=== PATIENT | male | born 1970 | race Caucasian/White ===

== ENCOUNTER 2017-07-26 15:54 | Inpatient (IN) | payer OTHER ==
[2017-07-26] MEDS ORDERED: ACETAMINOPHEN 500 MG CPLT PO PRN (16:00)
[2017-07-26] MEDS ORDERED: ONDANSETRON HCL 4 MG/2 ML VIAL IV PUSH PRN (16:00)
[2017-07-26] MEDS ORDERED: SODIUM CHLORIDE 0.9% FLUSH 5 ML FLUSH IVF PRN (16:00)
[2017-07-26] MEDS ORDERED: ACETAMINOPHEN/HYDROcodone 325 MG/7.5 MG TAB PO PRN (16:00)
--- NOTE | 2017-07-26 16:20 | HHI.HP ---
HPI Primary Care Physician Non-Staff Chief Complaint Chest pain History of Present Illness This is a 46-year-old male that presents to ED in [place] to evaluate chest discomfort that began this morning. He was then transferred via [facility] to the chest pain center to further evaluate his discomforts. He states that he had just finished going on his treadmill for 40 minutes. Going about 6 mph. Maximal heart rate about 1-60. About 20 minutes later while in the shower he developed a tightness in the center/left of his chest but began to worsen as she is driving into work. It has remained a 5 out of 10 ever since. He states he was given subluminal nitroglycerin in the ED and ointment which really has not changed symptoms. Denies shortness breath, nausea, or diaphoresis. States he is active. He goes on the treadmill 3 times a week and has no discomfort when doing so. He also will ride his bicycle at times for 20 miles or more. States he never has discomfort while doing so. Denies recent illness. Denies fevers or chills. Denies recent travel. Cannot recall ever having a stress test or heart catheterization. Review of Systems General: Patient denies fevers, chills recent, and recent travel HEENT: Patient denies headache, sore throat, difficulty swallowing. Cardiovascular: Has the chest discomfort as mentioned above. Denies sensation of heart beating rapidly or irregularly. No syncope. Respiratory: Denies shortness of breath or inspirational chest discomfort. Denies coughing wheezing or hemoptysis. GI: Patient denies nausea, vomiting, diarrhea, abdominal pain, bloody stools. Musculoskeletal: Patient denies joint pain or edema. Denies calf pain or edema. Neurovascular: Patient denies numbness, tingling, weakness in extremities. Denies headache. Endocrine: Denies polyuria and polydipsia. Hematologic: Denies easy bruising. Skin: Denies rash or itching. Past Family Social History Allergies: Coded Allergies: No Known Allergies (Unverified , 07/26/17) Past Medical History Denies hypertension, hyperlipidemia, diabetes, and known CAD. Past Surgical History Denies surgeries. Reported Medications Reported Meds & Active Scripts Active No Active Prescriptions or Reported Medications Active Ordered Medications Current Medications Medications (Trade) Dose Ordered Sig/[place] Route Start Time Stop Time Status Last Admin (NS Flush) 2 ml UNSCH PRN IVF 07/26/17 16:00 UNV (NS Flush) 2 ml BID IVF 07/26/17 21:00 UNV (Tylenol) 500 mg Q4H PRN PO 07/26/17 16:00 UNV (Angora 7.5-325 Mg) 1 tab Q4H PRN PO 07/26/17 16:00 UNV (Zofran Inj) 4 mg Q6H PRN IV PUSH 07/26/17 16:00 UNV (Aspirin) 325 mg DAILY PO 07/27/17 09:00 UNV Family History Denies family history of CAD. Social History Patient is a lifetime nonsmoker. Denies illicit drugs. He has an occasional glass of wine. 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 He is . Physical Exam Physical Exam GENERAL: This is a well-nourished, well-developed patient, in no apparent distress. Patient speaks in clear complete sentences. Patient is pleasant. HEENT: Head is atraumatic and normocephalic. Neck is supple without lymphadenopathy and trachea is midline. No JVD or carotid bruits. CARDIOVASCULAR: Regular rate and rhythm without murmurs, gallops, or rubs. RESPIRATORY: Clear to auscultation. Breath sounds equal bilaterally. No wheezes , rales, or rhonchi. Chest wall is nontender. No use of accessory muscles. GASTROINTESTINAL: Abdomen is nontender, nondistended. Abdomen soft. No obvious pulsatile mass or bruit. No CVA tenderness. Strong femoral pulses bilaterally. Normal bowel sounds in all quadrants. MUSCULOSKELETAL: Patient is moving upper and lower extremities freely. No calf tenderness or edema, no Homans sign. Strong pulses in upper and lower extremities. NEUROLOGICAL: Patient is alert and oriented. Cranial nerves 2-12 are grossly intact. No focal deficits and speech is clear. SKIN: No rash and turgor is normal. Imaging Chest x-ray reveals nothing acute. Course Initial EKG sinus rhythm without significant ST segment depressions or elevations. Caprini VTE Risk Assessment Caprini VTE Risk Assessment: No/Low Risk (score <= 1) Caprini Risk Assessment Model Point Value = 1 Point Value = 2 Point Value = 3 Point Value = 5 Age 41-60 Minor surgery BMI > 25 kg/m2 Swollen legs Varicose veins or History of unexplained or recurrent spontaneous Oral contraceptives or hormone replacement Sepsis (< 1 month) Serious lung disease, including pneumonia (< 1 month) Abnormal pulmonary function Acute myocardial infarction Congestive heart failure (< 1 month) History of inflammatory bowel disease Medical patient at bed rest Age 61-74 Arthroscopic surgery Major open surgery (> 45 min) Laparoscopic surgery (> 45 min) Malignancy Confined to bed (> 72 hours) Immobilizing plaster cast Central venous access Age >= 75 History of VTE Family history of VTE Factor V Leiden Prothrombin [id number] Lupus anticoagulant Anticardiolipin antibodies Elevated serum homocysteine Heparin-induced thrombocytopenia Other congenital or acquired thrombophilia Stroke (< 1 month) Elective arthroplasty Hip, pelvis, or leg fracture Acute spinal cord injury (< 1 month) Prophylaxis Regimen Total Risk Factor Score Risk Level Prophylaxis Regimen 0-1 Low Early ambulation 2 Moderate Order ONE of the following: *Sequential Compression Device (SCD) *Heparin 5000 units SQ BID 3-4 Higher Order ONE of the following medications: *Heparin 5000 units SQ TID *Enoxaparin/Lovenox 40 mg SQ daily (WT < 150 kg, CrCl > 30 mL/min) *Enoxaparin/Lovenox 30 mg SQ daily (WT < 150 kg, CrCl > 10-29 mL/min) *Enoxaparin/Lovenox 30 mg SQ BID (WT < 150 kg, CrCl > 30 mL/min) AND/OR *Sequential Compression Device (SCD) 5 or more Highest Order ONE of the following medications: *Heparin 5000 units SQ TID (Preferred with Epidurals) *Enoxaparin/Lovenox 40 mg SQ daily (WT < 150 kg, CrCl > 30 mL/min) *Enoxaparin/Lovenox 30 mg SQ daily (WT < 150 kg, CrCl > 10-29 mL/min) *Enoxaparin/Lovenox 30 mg SQ BID (WT < 150 kg, CrCl > 30 mL/min) AND *Sequential Compression Device (SCD) Assessment and Plan Assessment and Plan * Non-STEMI: Patient was transferred to chest pain center and second troponins elevated to 0.76. Patient has been seen by Dr. Strickland of cardiology and the chest pain center. At this time patient was admitted [facility] Talley and consultation to Dr. Caesar Hou. I discussed this patient with Dr. Hou and heparin, beta wendy, aspirin have been requested. These will be started as well as statin. A lipid panel in the morning. He' ll be nothing by mouth after midnight for likely cardiac catheterization in the morning. Patient is agreeable to this plan. Tony Nino Jul 26, 2017 16:19
[2017-07-26] MEDS ORDERED: ALPRAZolam 0.25 MG TAB PO PRN (16:45)
[2017-07-26] MEDS ORDERED: cloNIDine HCL 0.1 MG TAB PO PRN (16:45)
[2017-07-26] MEDS ORDERED: RESP: ALBUTEROL 2.5 MG/IPRATROPIUM 0.5 MG NEB (PRN) INH (16:45)
[2017-07-26 16:51] VITALS: BP 123/70; PULSE 58; RESP 20; TEMP 98; O2SAT 96
[2017-07-26 17:01] LABS: CREATINE KINASE 227 U/L (39-308)
[2017-07-26] MEDS ORDERED: SODIUM CHLOR 0.9% 1000 ML INJ 1,000 ML IV SCH (17:11)
[2017-07-26 17:18] LABS: CKMB 8.6 NG/ML (0.5-3.6)
[2017-07-26] MEDS ORDERED: MORPHINE SULFATE 8 MG/ML INJ IV PUSH PRN (17:30)
[2017-07-26] MEDS ORDERED: HEPARIN-D5W 25,000 U/250 ML 250 ML IV PRN ×2 (17:30→19:00)
[2017-07-26] MEDS ORDERED: HEPARIN SODIUM - IV 10,000 UNITS/10 ML VIAL IV PUSH ONE (17:30)
[2017-07-26] MEDS: PANTOPRAZOLE SOD 40 MG DELAYED RELEASE TAB PO SCH (18:00)
[2017-07-26] MEDS: ATORVASTATIN 20 MG TAB PO SCH (18:00)
[2017-07-26] MEDS: NITROGLYCERIN 2% OINT 1 GM PACKET TOPICAL SCH (18:34)
[2017-07-26 18:36] LABS: APTT (PATIENT) 25.4 SEC (24.3-30.1); PROTHROMBIN TIME - PATIENT 11.4 SEC (9.8-11.6)
[2017-07-26 19:36] LABS: CREATINE KINASE 285 U/L (39-308)
[2017-07-26 19:37] VITALS: BP 98/65; PULSE 60; RESP 18; TEMP 98.2; O2SAT 98
[2017-07-26 19:56] LABS: CKMB 16.4 NG/ML (0.5-3.6)
[2017-07-26] MEDS: SODIUM CHLORIDE 0.9% FLUSH 5 ML FLUSH IVF SCH (20:51)
[2017-07-26] MEDS: METOPROLOL TARTRATE 25 MG TAB PO SCH (21:00)
[2017-07-26 22:35] LABS: HEMATOCRIT 42.6 % (39.0-51.0); MEAN CELL VOLUME 84.3 FL (80.0-100.0); MEAN CORPUSCULAR HEMOGLOBIN 28.8 PG (27.0-34.0); MEAN CORPUSCULAR HGB CONC 34.2 % (32.0-36.0); PLATELET COUNT 199 TH/MM3 (150-450); RED BLOOD COUNT 5.06 MIL/MM3 (4.50-5.90); RED CELL DISTRIBUTION WIDTH 13.1 % (11.6-17.2); REVIEW FLAG FINAL; WHITE BLOOD COUNT 10.9 TH/MM3 (4.0-11.0)
[2017-07-26] MEDS ORDERED: HEPARIN SODIUM - IV 10,000 UNITS/10 ML VIAL IV PUSH PRN ×2 (23:30)
[2017-07-26 23:31] VITALS: BP 129/74; PULSE 55; RESP 18; TEMP 98.2; O2SAT 98
[2017-07-27] VITALS (11 sets, daily range): BP systolic 116–151; BP diastolic 63–84; PULSE 51–80; RESP 16–20; TEMP 98.2–100.1; O2SAT 95–99
[2017-07-27] MEDS: NITROGLYCERIN 2% OINT 1 GM PACKET TOPICAL SCH ×4 (00:38→18:00)
[2017-07-27 01:06] LABS: APTT (PATIENT) 33.6 SEC (24.3-30.1)
[2017-07-27] MEDS ORDERED: diphenhydrAMINE HCL 50 MG CAP PO SCH (08:30)
[2017-07-27] MEDS ORDERED: DIAZEPAM 10 MG TAB PO SCH (08:30)
--- NOTE | 2017-07-27 08:41 | MB ---
cc: AMOR GOMEZ M.D. DATE OF CONSULTATION 07/27/2017 REASON FOR CONSULTATION [id number] myocardial infarction. HISTORY OF PRESENT ILLNESS The patient is a 46-year-old white male with no major past medical history who was in his usual state of health up until yesterday when after using the treadmill he began to experience substernal chest tightness. The tightness resolved after about 40 minutes and he got ready for work. However, on the way to work he once again experienced a chest tightness so he decided to go to the emergency room for further evaluation and treatment. The patient states he had an episode of similar chest tightness about two weeks ago although of much less intensity and duration. Yesterday the chest tightness may have lasted a few hours and there was no associated shortness of breath, nausea or diaphoresis. He has been exercising regularly for many years without difficulty. At the present time he is resting comfortably, denying chest pain, shortness of breath, dizziness, syncope, near-syncope, palpitations, pedal edema, paroxysmal nocturnal dyspnea. PAST MEDICAL HISTORY None. PAST SURGICAL HISTORY None. MEDICATIONS AT HOME None. ALLERGIES No known drug allergies. FAMILY HISTORY There is no family history of cardiac disease. SOCIAL HISTORY The patient denies alcohol or tobacco abuse. REVIEW OF SYSTEMS As in the history of present illness, otherwise negative or noncontributory. He also denies headache, abdominal pain, melena, dyspepsia, bright red blood per rectum, cough, wheezing. PHYSICAL EXAMINATION VITAL SIGNS: On physical examination his blood pressure is 139/81 with a pulse of 52, respirations 20. IN GENERAL: He is a well-developed, well-nourished white male in no acute distress. NECK AND HEENT EXAMINATION: Jugular venous pressure is normal. Carotid pulses are 2+ bilaterally and without bruits. EXAMINATION OF THE CHEST: Clear lung lentz. CARDIAC EXAMINATION: He has a regular rhythm and rate without S3, S4 or murmur. ABDOMEN: On abdominal examination he has a soft, obese, nontender abdomen. Bowel sounds are present. There is no definite hepatosplenomegaly. EXAMINATION OF EXTREMITIES: No clubbing, cyanosis or edema. Peripheral pulses are normal throughout. CHEST X-RAY Shows no acute disease. LABORATORY DATA Normal CBC. CK 285, CK-MB of 16.4. Troponin 1.7. EKG Sinus bradycardia, possible early repolarization abnormality. IMPRESSION Acute [id number] myocardial infarction in this 46-year-old white male with no major past medical history. Cardiac enzymes are consistent with acute myocardial infarction. No definite significant acute EKG changes are seen. He may have severe disease in the left circumflex system. At this time he is chest pain free. There has been no evidence for congestive heart failure or significant arrhythmias so far. Because of the instability of his symptoms and the abnormal cardiac enzymes, he has been recommended cardiac catheterization with probable percutaneous coronary intervention the risks of which have been explained him including but not limited to , myocardial infarction, stroke, arrhythmia, bleeding, infection, renal failure. He agrees to proceed. RECOMMENDATIONS 1. Cardiac catheterization this morning. 2. Check a fasting lipid profile. 3. Continue beta wendy therapy has started here in the emergency department; add an PABLO inhibitor. 4. Continue heparin drip and aspirin MD HIWOT Fuchs/NASIM /8:13 AM /8:26 AM BRIANNA
[2017-07-27] MEDS ORDERED: ASPIRIN 325 MG TAB PO SCH (09:00)
[2017-07-27] MEDS: SODIUM CHLORIDE 0.9% FLUSH 5 ML FLUSH IVF SCH ×2 (09:00→20:57)
[2017-07-27] MEDS: METOPROLOL TARTRATE 25 MG TAB PO SCH ×2 (09:00→20:57)
[2017-07-27] MEDS ORDERED: ENALAPRIL MALEATE 2.5 MG TAB PO SCH (09:00)
--- NOTE | 2017-07-27 09:28 | HHI.PR ---
Subjective Remarks Follow up for chest pain, NSTEMI. The patient reports feeling well overnight. No recurrent episodes of chest pains. Denies any shortness of breath, nausea/ vomiting, or diaphoresis. He is going for cardiac catheterization today. He has no other medical complaints at this time. Objective Vitals Vital Signs Date Time Temp Pulse Resp B/P (MAP) Pulse Ox O2 Delivery O2 Flow Rate FiO2 07/27/17 08:56 95 21 07/27/17 07:12 98.4 52 20 139/81 (100) 95 07/27/17 05:14 Nasal Cannula 2.00 07/27/17 04:30 98.2 51 18 116/63 (80) 99 07/26/17 23:31 98.2 55 18 129/74 (92) 98 07/26/17 19:37 98.2 60 18 98/65 (76) 98 07/26/17 16:51 98.0 58 20 123/70 (87) 96 Result Diagram: 07/26/172219 Objective Remarks GENERAL: Well-nourished, well-developed pleasant middle aged male patient in [facility]. SKIN: Warm and dry. No rash. HEENT: Normocephalic. Atraumatic. Pupils equal and round. Mucous membranes pink and moist. CARDIOVASCULAR: Regular rate and rhythm. S1, S2 noted. No murmur appreciated. RESPIRATORY: No accessory muscle use. Clear to auscultation. Breath sounds equal bilaterally. GASTROINTESTINAL: Abdomen soft, non-tender, nondistended. Normoactive bowel sounds x4. MUSCULOSKELETAL: No obvious deformities. Extremities without clubbing, cyanosis , or edema. NEUROLOGICAL: Awake and alert. No obvious cranial nerve deficits. Motor grossly within normal limits. Normal speech. PSYCHIATRIC: Appropriate mood and affect; insight and judgment normal. Medications and IVs Current Medications Medications (Trade) Dose Ordered Sig/[place] Route Start Time Stop Time Status Last Admin (NS Flush) 2 ml UNSCH PRN IVF 07/26/17 16:00 (NS Flush) 2 ml BID IVF 07/26/17 21:00 (Tylenol) 500 mg Q4H PRN PO 07/26/17 16:00 (Gordon 7.5-325 Mg) 1 tab Q4H PRN PO 07/26/17 16:00 (Zofran Inj) 4 mg Q6H PRN IV PUSH 07/26/17 16:00 (Aspirin) 325 mg DAILY PO 07/27/17 09:00 (Protonix) 40 mg DAILY PO 07/26/17 16:30 07/26/17 18:00 (Duoneb Neb) 1 ampule Q4HR NEB PRN INH 07/26/17 16:45 (Catapres) 0.1 mg Q4H PRN PO 07/26/17 16:45 (Xanax) 0.25 mg Q6H PRN PO 07/26/17 16:45 (Nitroglycerin 2% Oint) 1 inch Q6HR TOPICAL 07/26/17 18:00 07/27/17 06:34 (Lopressor) 25 mg Q12HR PO 07/26/17 21:00 (Lipitor) 20 mg DAILY PO 07/26/17 17:15 07/26/17 18:00 (Heparin Inj) 5,000 units UNSCH PRN IV PUSH 07/26/17 23:30 (Heparin Inj) 2,500 units UNSCH PRN IV PUSH 07/26/17 23:30 (Morphine Inj) 5 mg Q4H PRN IV PUSH 07/26/17 17:30 Heparin Sodium/ Dextrose 250 ml @ 10 mls/hr TITRATE PRN IV 07/26/17 19:00 07/26/17 19:32 (Vasotec) 2.5 mg DAILY PO 07/27/17 09:00 Sodium Chloride 1,000 ml @ 100 mls/hr Q10H IV 07/27/17 08:17 08/01/17 08:16 (Benadryl) 50 mg COAL GASIFICATION TECHNICIAN PO 07/27/17 08:30 07/31/17 08:29 (Valium) 10 mg COAL GASIFICATION TECHNICIAN PO 07/27/17 08:30 07/31/17 08:29 A/P Problem List: (1) NSTEMI (non-ST elevated myocardial infarction) ICD Code: I21.4 - Non-ST elevation (NSTEMI) myocardial infarction Assessment and Plan 46-year-old active male with no significant past medical history, presents with chest pain after exercising on the treadmill NSTEMI: Troponins 0.05 --> 0.76 --> 1.71. EKG reviewed, shows sinus bradycardia otherwise no acute ST changes. -Started on aspirin, statin, metoprolol, lisinopril, nitro paste, IV morphine prn chest pain -Started on IV Heparin drip -check lipid profile and HgbA1c -monitor on telemetry -consulted cardiology, Dr. Lux plan for cardiac catheterization today DVT Prophylaxis: on heparin drip Sharri Milan PA-C Jul 27, 2017 9:28 am
[2017-07-27] MEDS: PANTOPRAZOLE SOD 40 MG DELAYED RELEASE TAB PO SCH (09:39)
[2017-07-27] MEDS: ATORVASTATIN 20 MG TAB PO SCH (09:43)
[2017-07-27] MEDS: SODIUM CHLOR 0.9% 1000 ML INJ 1,000 ML IV SCH ×4 (10:01→22:18)
[2017-07-27] MEDS ORDERED: HEPARIN SODIUM - IV 10,000 UNITS/10 ML VIAL ONE (10:55)
[2017-07-27] MEDS ORDERED: HEPARIN-NS/PF INJ 500 ML ONE (10:55)
[2017-07-27] MEDS ORDERED: NITROGLYCERIN INJ 5 ML ONE (10:55)
[2017-07-27] MEDS ORDERED: MIDAZOLAM HCL 2 MG/2 ML VIAL ONE ×2 (10:56→11:28)
--- NOTE | 2017-07-27 11:15 | EKG ---
Date Performed: 07/26/2017 Time Performed: 21:17:53 PTAGE: 46 years EKG: SINUS BRADYCARDIA MINIMAL VOLTAGE CRITERIA FOR LVH, CONSIDER NORMAL VARIANT BORDERLINE ECG PREVIOUS TRACING : 07/26/2017 16.09 Since previous tracing, no significant change noted DOCTOR: Thai Strickland Interpretating Date/Time 07/27/2017 11:14:47
--- NOTE | 2017-07-27 11:19 | EKG ---
Date Performed: 07/26/2017 Time Performed: 16:09:14 PTAGE: 46 years EKG: SINUS BRADYCARDIA VOLTAGE CRITERIA FOR LVH ABNORMAL ECG INTERPRETATION BASED ON A DEFAULT A GE OF 40 YEARS Since PREVIOUS TRACING , no significant change noted DOCTOR: Thai Strickland Interpretating Date/Time 07/27/2017 11:18:03
[2017-07-27] MEDS ORDERED: TIROFIBAN INFUSION INJ 250 ML IV ONE (11:28)
[2017-07-27] MEDS: TIROFIBAN INFUSION INJ 250 ML IV SCH ×2 (11:41→20:56)
[2017-07-27] MEDS ORDERED: TICAGRELOR 90 MG TAB PO ONE (11:54)
--- NOTE | 2017-07-27 12:04 | CATHPROC ---
[facility] [employer] HIS Report Study Information Study Number Admission Scheduled Start Study Start [id number] Jul 26 2017 4:04PM 07/27/2017 Jul 27 2017 10:52AM [facility] Cardiac Catheterization Admit Source Facility Department Emergency department [facility] - Dress Cap Maker Physician and Clinical Staff Initial Matty Perry Ware Cleaner Cara Shepherd,BRITTANY Recorder Rupali Monsalve,RT(R) Recorder Luis Amato,RT(R) Scrub Yadi Johnson,INFORMATION TECHNOLOGY CONSULTANT TECH2 Procedures Performed Procedure Location (Site) Vessel Name Angiogram LV LV Ventricle Coronary Angiograms LCA Left Coronary Coronary Angiograms RCA Right Coronary Drug Eluting Inflatio RCA Prox Right Coronary L Heart Cath PTCA RCA Prox Right Coronary Wire insertion Fem Art (right) Femoral Art Wire insertion Radial (right) Radial Art. Equipment Time Supervisor Assembly Description Size Mfg Part Number Used/Scraped [id number] 11:29 [employer] WIRE, ASAHI PROWATER 180CM 180CM Used *[id number] TRANSDUCER, TRUWAVE [id number] 11:10 MAY LEWIS * Used W/STOCKCOCK *[id number] *[id number] *[id number] PIGTAIL ANG. 145 INFINITI [id number] CATHETER *[id number] 11:10 MALLINCKRODT SYRINGE, ANGIOMAT 150ML 150ML *[id number] Used 2S Reppler CONCEPT DRAPE, RADIAL FEMORAL FULL 11:10 * [id number] *[id number] Used DEVELOPMENT BODY [id number] 11:10 [employer]IRIGA [employer] PACK, CCL CUSTOM * Used *[id number] 11:10 [employer] SUPPORT, ARTERIAL ADULT 02435 *[id number] Used [id number] 11:10 TRIRIGA PACER PEN, SKIN DUAL W/ RULER * Used *[id number] 11:31 MEDTRONIC BALLOON, 3.0 X 15MM EUPHORA 15MM Used *[id number] STENT, 3.0 34 RESOLUTE [id number] 11:40 MEDTRONIC 3.0 34 Used INTEGRITY RX *[id number] 11:32 Psykosoft 30 LOLA INDEFLATOR Used *[id number] BAND, RADIAL COMPRESSION TR [id number] 12:00 [employer] 24CM Used SHORT 24 *[id number] SHEATH, FR6 RADIAL PRELUDE 11:10 [employer]oft FR 6 [id number] Used EASE 11CM [id number] 11:25 [employer] [place] MEDICAL SHEATH, FR6.5 PRELUDE 11CM FR 6.5 038ACT Used *[id number] 11:10 [employer] [place] MEDICAL WIRE, EXCHANGE 260CM 3MMJ 260CM Used *[id number] [id number] 11:10 NAMIC MANIFOLD, 4 PORT * Used *[id number] 11:10 NYCOMED OMNIPAQUE, 350 MG, 150ML 150ML [id number] Used 11:45 NYCOMED OMNIPAQUE, 350 MG, 50ML 50ML [id number] Used [id number] 11:10 SHEETS [facility] BLANKET,WARM AIR CCL * Used *[id number] CATHETER, FR5 OPTITORQUE [id number] 11:05 [employer] FR 5 Used RADIAL TIG 4.0 *[id number] Equipment Model, Serial, Lot Number and Expiration Data Description Model Number Serial Number Lot Number Expiration Date STENT, 3.0 34 RESOLUTE [id number] 12-31-2018 INTEGRITY RX History: Current Medications Medication Dosage/Unit Route Frequency Last Date/Time Taken Beta Isidoro ASA VASOTEC LIPITOR History: Allergies Allergy Reaction No Known Allergies History: Risk Factors Family History of Hypertension Dyslipidemia Previous MT Previous Heart Failure Premature CAD No No No No No Prior Valve Prior PCI Prior CABG Surgery No No No Cerebrovascular Peripheral Artery Chronic Lung On Dialysis Diabetes Disease Disease Disease No No No No No History: Symptoms/Diagnosis Selection Items Chest pain History: Stress Tests Stress or Imaging Studies Performed No History: Other Current Smoker No Labs Hgb (g/dl) Hct (%) RBC (MIL/MM3) WBC (l/cumm) Platelets (thousands) 11.60-17.00 35.00-51.00 4.00-5.90 4.00-11.00 150.00-450.00 14.6 42.6 5 10.9 199 Glucose (mg/dl) BUN (mg/dl) Creatinine (mg/dl) BUN:Creatinine (1:x) 74.00-106.00 7.00-18.00 0.50-1.30 10.00-20.00 113 12 0.8 15 Na (meq/l) K (meq/l) 136.00-145.00 3.50-5.10 142 3.9 PT (sec) PTT (sec) INR (PTT:PT) 9.80-11.60 24.30-30.10 0.90-1.10 11.4 33.6 1 Troponin I (ng/ml) CPK (u/l) CPK-MB (ng/ML) 0.02-0.05 26.00-308.00 0.50-3.60 1.71 285 16.4 Medication Medication Total Dose (Bolus/Oral) Medication Total Dosage/Unit 1% XYLOCAINE 40 mL AGGRASTAT BOLUS 56.5 mL BRILLINTA 180 mg HEPARIN 6800 units NTG (IC) 300 mcg VERSED 2 mg Medications (Bolus/Oral) Medication Time Given Dosage/Unit Administered By Reason 07/27/2017 11:04:50 VERSED 2 mg Cara Shepherd AM 2 mg VERSED given in lab by Cara Shepherd RN in Left Antecubital via Peripheral IV. 07/27/2017 11:05:42 1% XYLOCAINE 20 mL Matty Lux AM 20 mL 1% XYLOCAINE given by Matty Lux in Right Radial via Subcutaneous. 07/27/2017 11:25:19 1% XYLOCAINE 20 mL Matty Lux AM 20 mL 1% XYLOCAINE given in lab by Matty Lux in Right Groin via Subcutaneous. 07/27/2017 11:32:26 HEPARIN 6800 units Cara Shepherd AM 6800 units HEPARIN given in lab by Cara Shepherd, BRITTANY in Left Antecubital via Peripheral IV. 07/27/2017 11:35:58 NTG (IC) 50 mcg Yadi Johnson AM 50 mcg NTG (IC) given in lab by Yadi Johnson RRT TECH2 via Intra-coronary. 07/27/2017 11:36:09 AGGRASTAT BOLUS 56.5 mL Cara Shepherd AM 56.5 mL AGGRASTAT BOLUS given in lab by Cara Shepherd, BRITTANY in Left Antecubital via Peripheral IV. 07/27/2017 11:36:46 NTG (IC) 50 mcg Yadi Johnson AM 50 mcg NTG (IC) given in lab by aYdi Johnson RRT TECH2 via Intra-coronary. 07/27/2017 11:37:26 NTG (IC) 100 mcg Yadi Johnson AM 100 mcg NTG (IC) given in lab by Yadi Johnson RRT TECH2 via Intra-coronary. 07/27/2017 11:42:49 NTG (IC) 100 mcg Yadi Johnson AM 100 mcg NTG (IC) given in lab by Yadi Johnson RRT TECH2 via Intra-coronary. 07/27/2017 11:52:17 BRILLINTA 180 mg Cara Shepherd AM 180 mg BRILLINTA given in lab by Cara Shepherd, RN in Per mouth via Oral. Medication (Drip) Medication Time Given Dosage/Unit Concentration/Unit Diluent (ml) Solution 07/27/2017 11:41:25 AGGRASTAT DRIP 0.15 mcg/kg/min 12.5 mg 250 NaCl .9 AM 0.15 mcg/kg/min AGGRASTAT DRIP given in lab by Cara Shepherd RN in Left Antecubital via Peripheral IV. Pump/Drip Flow = 20.34 ml/hr using NaCl .9 with a concentration of 12.5 mg in 250 ml. 07/27/2017 10:54:27 IV Solutions 0 mL (IV) 500 NaCl .9 AM Patient arrived on IV Solutions in Left Antecubital via Peripheral IV. Pump/Drip Flow = 20 ml/hr usin g NaCl .9. Initial Case Assessment Cardiovascular HR Rhythm NIBP Chest Pain 54 adrian 128/79 0 Edema Present Skin color Skin None Normal Warm Circulatory - Right Pulses Dorsalis Pedis Femoral Radial 3 2 2 Scale (0,1,2,3,4,d) Circulatory - Left Pulses Dorsalis Pedis Femoral Radial 3 Scale (0,1,2,3,4,d) Circulatory - Lower Extremities Color Lower Right Color Lower Left Normal Normal Neurological State Oriented to time-place- Alert Moves all extremities person Respiration - General Respiration Rate SpO2 (%) (B/min) 13 95 Final Case Assessment Cardiovascular HR Rhythm NIBP Chest Pain 56 Sinus 162/99 0 Edema Present Skin color Skin None Normal Warm Dry Circulatory - Right Pulses Dorsalis Pedis Femoral 2 2 Scale (0,1,2,3,4,d) Circulatory - Left Pulses Dorsalis Pedis Femoral 2 2 Scale (0,1,2,3,4,d) Neurological State Oriented to time-place- Alert Moves all extremities person Respiration - General Respiration Rate O2 (lpm) (B/min) 9 0 Chronological Log Time Study Chronological Log 10:35:57 Patient arrived via Bed. 10:36:10 Patient Name, D.O.B, / Armband Verified By R.N. 10:37:40 Pre-op and post- op instructions given; patient acknowledges understanding of instructions. 10:38:10 Verbal Stimulation=2 Physical Stimulation=2 Airway=2 Respiration=2 TOTAL=8. (0=absent, 1=li mited, 2=present) 10:39:44 Allens test performed on the right radial and ulnar artery. 10:39:49 Patient has been NPO for More than 6Hrs. 10:40:57 Skin Breakdown-none 10:41:20 Patient Warmer Placed on the Table. 10:54:17 A # 20 IV was noted in the Antecubital (left). Grade = 0 10:54:27 Patient arrived on IV Solutions in Left Antecubital via Peripheral IV. Pump/Drip Flow = 20 ml/hr using NaCl .9. 10:54:45 Reference ECG taken Vitals capture started with the following parameters, Patient=Adult, Interval=5 min, Initial Pr rwnhra=001 mmHg, 10:54:52 Deflation Rate=5 mmHg, Cuff placed on right Arm 10:54:57 Pressure channel 1 zeroed. 10:55:33 HR=56 bpm, YQTT=543/78 mmhg, SpO2=95.0 %, Resp=19 B/min, Pain=0, Milena=10, [place]=2 10:58:46 History and physical on the chart or being dictated. Assessment: Initial Case, HR=54 BPM, Rhythm=adrian, FWOO=392/79 mmhg, Chest Pain=0, Edema=None, Color=Normal, Skin = Warm Right Pulses: Wali Ped=3, Femoral=2, Radial=2 Left Pulses: Wali Ped=3 10:58:50 Lower Right Extremities: Color=Normal Lower Left Extremities: Color=Normal Neurological: State=Alert, Ox3, RAMIREZ Respiration: Resp=13 B/min, SpO2=95 % 10:59:23 Bilateral groins prepped with 2% chlorhexidine, and draped after a 3 minute waiting time. 10:59:27 MD paged 11:00:30 HR=55 bpm, LMLB=290/75 mmhg, SpO2=98.0 %, Resp=14 B/min, Pain=0, Milena=10, [place]=2 11:01:47 MD arrived. Time Out. Correct patient, correct procedure, correct physician, power injector not loaded with contrast with surgical 11:03:19 team present. Time Out Concurred by MD and individual staff in procedure. 11:03:28 Case Start 11:04:50 2 mg VERSED given in lab by Cara Shepherd, BRITTANY in Left Antecubital via Peripheral IV. 11:05:31 HR=59 bpm, ROFM=455/72 mmhg, SpO2=96.0 %, Resp=15 B/min, Pain=0, Milena=10, [place]=2 11:05:34 Verbal Stimulation=2 Physical Stimulation=2 Airway=2 Respiration=2 TOTAL=8. (0=absent, 1=li mited, 2=present) 11:05:42 20 mL 1% XYLOCAINE given by Matty Lux in Right Radial via Subcutaneous. 11:07:10 Access site was Radial Artery. RT 11:09:41 A wire was inserted via Radial (right). A SHEATH, FR6 RADIAL PRELUDE EASE 11CM FR 6 was advanced into the Radial (right) using the Perc utaneous 11:09:49 technique. A CATHETER, FR5 OPTITORQUE RADIAL TIG 4.0 FR 5 was advanced over a wire. OMNIPAQUE, 350 MG, 150 ML 150ML 11:10:08 was used for injections. 11:11:11 HR=61 bpm, HSMZ=892/72 mmhg, SpO2=93.0 %, Resp=14 B/min, Pain=0, Milena=10, [place]=2 11:14:39 The LCA was injected and visualized at various angles. OMNIPAQUE, 350 MG, 150ML 150ML used . 11:15:31 HR=69 bpm, ILFY=698/70 mmhg, SpO2=95 %, Resp=13 B/min, Pain=0, Milena=10, [place]=2 Recorded Pressure: Ao, HR=68, Condition=Condition 1 11:15:40 (Aorta) Ao 109/75/91 A JR 5.0 INFINITI CATHETER FR 6 was advanced over a wire. OMNIPAQUE, 350 MG, 150ML 150ML was us ed for 11:19:08 injections. 11:20:32 HR=64 bpm, UHDE=369/69 mmhg, SpO2=95 %, Resp=13 B/min, Pain=0, Milena=10, [place]=2 11:22:52 The RCA was injected and visualized at various angles. OMNIPAQUE, 350 MG, 150ML 150ML used . 11:23:54 Catheter was removed 11:25:19 20 mL 1% XYLOCAINE given in lab by Matty Lux in Right Groin via Subcutaneous. 11:25:33 HR=59 bpm, JRFQ=888/87 mmhg, SpO2=96.0 %, Resp=19 B/min, Pain=0, Milena=10, [place]=2 11:26:07 Access site was Right Femoral Artery. 11:26:15 A SHEATH, FR6.5 PRELUDE 11CM FR 6.5 was advanced into the Fem Art (right) using the Percuta neous technique. 11:26:30 Activated Clotting Time Drawn A H-STICK GUIDE CATHETER FR 6 was advanced over a wire. OMNIPAQUE, 350 MG, 150ML 150ML was used for 11:27:48 injections. 11:29:33 A WIRE, ASAHI PROWATER 180CM 180CM was inserted via Fem Art (right). 11:29:50 Interventional wire has crossed the lesion 11:30:31 The RCA was injected and visualized at various angles. OMNIPAQUE, 350 MG, 150ML 150ML used . 11:30:36 HR=64 bpm, CLSV=131/82 mmhg, SpO2=96.0 %, Resp=13 B/min, Pain=0, Milena=10, [place]=2 11:30:55 A BALLOON, 3.0 X 15MM EUPHORA 15MM was inserted over WIRE, ASAHI PROWATER 180CM 180CM via t he RCA Prox. A BALLOON, 3.0 X 15MM EUPHORA 15MM over a WIRE, ASAHI PROWATER 180CM 180CM in the RCA Prox was inflated 11:31:31 using a 30 LOLA INDEFLATOR at 8 lola for 20 sec. A BALLOON, 3.0 X 15MM EUPHORA 15MM over a WIRE, ASAHI PROWATER 180CM 180CM in the RCA Prox was inflated 11:32:05 using a 30 LOLA INDEFLATOR at 8 lola for 30 sec. 11:32:26 6800 units HEPARIN given in lab by Cara Shepherd, BRITTANY in Left Antecubital via Peripheral I V. A BALLOON, 3.0 X 15MM EUPHORA 15MM over a WIRE, ASAHI PROWATER 180CM 180CM in the RCA Prox was inflated 11:32:53 using a 30 LOLA INDEFLATOR at 10 lola for 30 sec. A BALLOON, 3.0 X 15MM EUPHORA 15MM over a WIRE, ASAHI PROWATER 180CM 180CM in the RCA Prox was inflated 11:33:36 using a 30 LOLA INDEFLATOR at 10 lola for 30 sec. 11:35:29 HR=62 bpm, MHSY=276/92 mmhg, Resp=15 B/min, Pain=0, Milena=10, [place]=2 11:35:58 50 mcg NTG (IC) given in lab by Yadi Johnson RRT TECH2 via Intra-coronary. 11:36:09 56.5 mL AGGRASTAT BOLUS given in lab by Cara Shepherd RN in Left Antecubital via Periphe ral IV. 11:36:26 ACT (Normal Range 90-180) = 193 11:36:46 50 mcg NTG (IC) given in lab by Yadi Johnson RRT TECH2 via Intra-coronary. 11:36:57 Balloon Removed. 11:37:26 100 mcg NTG (IC) given in lab by Yadi Johnson RRT TECH2 via Intra-coronary. 11:38:25 Activated Clotting Time Drawn 11:38:41 The RCA was injected and visualized at various angles. OMNIPAQUE, 350 MG, 150ML 150ML used . 11:40:32 HR=68 bpm, QESX=003/83 mmhg, SpO2=96.0 %, Resp=10 B/min, Pain=0, Milena=10, [place]=2 A STENT, 3.0 34 RESOLUTE INTEGRITY RX 3.0 34 was advanced through a H-STICK GUIDE CATHETER FR 6 over a 11:40:47 WIRE, ASAHI PROWATER 180CM 180CM. 0.15 mcg/kg/min AGGRASTAT DRIP given in lab by Cara Shepherd RN in Left Antecubital via Zoe pheral IV. Pump/Drip 11:41:25 Flow = 20.34 ml/hr using NaCl .9 with a concentration of 12.5 mg in 250 ml. A STENT, 3.0 34 RESOLUTE INTEGRITY RX 3.0 34 was deployed using a 30 LOLA INDEFLATOR at 16 atmos pheres for 11:41:39 30 seconds in the RCA Prox. 11:42:41 Delivery device removed 11:42:49 100 mcg NTG (IC) given in lab by Yadi Johnson, INFORMATION TECHNOLOGY CONSULTANT TECH2 via Intra-coronary. 11:43:31 The RCA was injected and visualized at various angles. OMNIPAQUE, 350 MG, 150ML 150ML used . 11:43:45 Wire removed 11:43:51 Catheter was removed 11:44:11 ACT (Normal Range 90-180) = 263 A PIGTAIL ANG. 145 INFINITI CATHETER FR 6 was advanced over a wire. OMNIPAQUE, 350 MG, 50ML 50M L was used 11:45:02 for injections. 11:45:35 HR=61 bpm, DYSH=686/91 mmhg, SpO2=97.0 %, Resp=16 B/min, Pain=0, Milena=10, [place]=2 Recorded Pressure: LV, HR=62, Condition=Condition 1 11:45:36 (Left Ventricle) LV 151/17/24 11:47:57 The LV was injected at 12 cc/sec for a total of 42. OMNIPAQUE, 350 MG, 50ML 50ML used. Recorded Pressure: LV, Ao, HR=64, Condition=Condition 1 11:48:19 (Left Ventricle) LV 138/6/7, (Aorta) Ao 153/83/110 11:48:30 Catheter was removed 11:48:32 Case End 11:51:05 In the Fem Art (right) the SHEATH, FR6.5 PRELUDE 11CM FR 6.[address] by Yadi Johnson, INFORMATION TECHNOLOGY CONSULTANT TECH2. 11:51:17 HR=64 bpm, AQPQ=584/99 mmhg, Resp=14 B/min, Pain=0, Milena=10, [place]=2 11:51:20 No case complications noted. 11:51:21 Cine recording checked. 11:51:37 Implantable Device card placed in patient's chart. 11:52:17 180 mg BRILLINTA given in lab by Cara Shepherd, BRITTANY in Per mouth via Oral. Assessment: Final Case, HR=56 BPM, Rhythm=Sinus, TMSJ=177/99 mmhg, Chest Pain=0, Edema=None, Color=Normal, Skin = Warm, Dry Right Pulses: Wali Ped=2, Femoral=2 11:52:18 Left Pulses: Wali Ped=2, Femoral=2 Neurological: State=Alert, Ox3, RAMIREZ Respiration: Resp=9 B/min, O2=0 lpm Radial Compression Device Used. 15 mLs of air placed in BAND, RADIAL COMPRESSION TR SHORT 24 2 4CM. Affected 11:55:38 hand 97 % O2 saturation. 11:55:42 HR=62 bpm, OCGO=801/92 mmhg, Resp=19 B/min, Pain=0, Milena=10, [place]=2 11:56:30 Sterile dressing applied to site 11:59:18 Vitals capture stopped. 12:01:33 Bedside Report will be given. 12:01:47 A Left Heart Cath was performed. 12:02:[facility] - Contrast Media Used In Study Contrast Total Opened (mL) Total Used (mL) Total Wasted (mL) Omnipaque 300 160 140 End Study - Maximum Contrast Load Max Contrast Load (mL) 706.3 End Study - Radiation Exposure Fluoro Time (minutes) 13.2 End Study - Patient Disposition Complications Transferred To Interventional Outcome No Telemetry Bed successful
[2017-07-27] MEDS ORDERED: MISC INFORMATION XX ONE (12:15)
[2017-07-27] MEDS ORDERED: TEMAZEPAM 15 MG CAP PO PRN (12:15)
[2017-07-27] MEDS ORDERED: SODIUM CHLORIDE 0.9% FLUSH 5 ML FLUSH IVF PRN (12:15)
--- NOTE | 2017-07-27 12:49 | MA ---
cc: OSMAN GOMEZ DATE 07/27/2017 PROCEDURE Left heart catheterization, selective coronary angiography, left ventriculography, angioplasty and stent of the proximal to mid right coronary. PROCEDURE NOTE The patient was brought to the cardiac catheterization laboratory in a fasting state after having signed informed consent. The right radial region was prepped and draped as per policy and anesthetized with 1% lidocaine. Arterial access was obtained via the right radial artery and a 6-Cypriot sheath placed. Coronary arteriography was done using a Stanley catheter. However, as it was very difficult manipulating catheters through the right radial artery approach, it was decided to do the percutaneous intervention through a right femoral artery approach. Left ventriculography was done using an angled pigtail. Percutaneous coronary intervention was done as described below. There were no apparent immediate complications. HEMODYNAMIC DATA Left ventricle 138 with an end-diastolic pressure of 10. Aorta 153/83 with a mean of 110. There was no significant transvalvular aortic gradient on pullback of the pigtail catheter. CORONARY ARTERIOGRAPHY The left main is a large-caliber vessel with no disease. The left anterior descending gives rise to a large diagonal which may have up to 10% proximal stenosis. The proximal LAD has overall minimal luminal irregularities. The mid to distal LAD has minimal luminal irregularities. The left circumflex is a large vessel giving rise to a number of small to medium sized obtuse marginales. The first obtuse marginal arising from the very proximal left circumflex is small in size and has up to 75% ostial stenosis. A medium-sized second obtuse marginal is free of disease. Another very small third obtuse marginal has 70% ostial stenosis. Slightly more distally, a medium-sized fourth obtuse marginal has 60% ostial to proximal stenosis. The right coronary artery is totally occluded proximally. No flow is evident in the vessel. There are no uaci-qm-oxsfx collaterals. LEFT VENTRICULOGRAPHY Contrast injection of the left ventricle reveals possible minimal basal inferior hypokinesis. Ejection fraction is estimated at 60%. PERCUTANEOUS CORONARY INTERVENTION DESCRIPTION Aggrastat was given as per protocol. Adequate heparin was given during the procedure to achieve an ACT greater than 250 seconds. As noted above, due to difficulties manipulating catheters through the right radial artery approach. The intervention was done through the right groin. Arterial access was obtained via the right femoral artery and a 6-Cypriot sheath placed. Using a 6-Cypriot hockey-stick guiding catheter with side holes, the ostium of the right coronary artery was re-engaged. Using a 0.014 Prowater guidewire, the total occlusion was crossed without difficulty and the tip of the wire positioned distally. Predilation was done using a number of balloon inflations using a 3.0-mm Euphora balloon catheter. Multiple administrations of intracoronary nitroglycerin were also administered. Stenting was then done using a 3.0 x 34-mm Resolute stent which was deployed at 16 atmospheres (3.30 mm) for 30 seconds. Final angiography shows overall good results with reduction of the total occlusion to 0% residual with no definite evidence for dissection or distal embolization. There is residual diffuse disease of the mid right coronary up to 20% severity. There is also up to 20% distal stenosis just prior to the takeoff of the posterior descending artery. CONCLUSION 1. Moderate to severe two-vessel coronary artery disease. 2. Status post angioplasty and stent of a totally occluded proximal right coronary artery. 3. Overall normal left ventricular function with estimated ejection fraction of 60%. MD HIWOT Fuchs/JOHN /11:55 AM /12:32 PM MTDMiguel
[2017-07-27] MEDS ORDERED: IOHEXOL 350 MG/ML 100 ML BTL (for Cath Lab) OTHER ONE (16:05)
[2017-07-27] MEDS: TICAGRELOR 90 MG TAB PO SCH (21:00)
[2017-07-27 22:07] LABS: ANION GAP 9 MEQ/L (5-15); BICARBONATE 25.2 MEQ/L (21.0-32.0); BLOOD UREA NITROGEN 9 MG/DL (7-18); CHLORIDE 105 MEQ/L (98-107); GLOMERULAR FILTRATION RATE 100 ML/MIN (>89); POTASSIUM 3.2 MEQ/L (3.5-5.1); SODIUM (NA) 139 MEQ/L (136-145)
[2017-07-27 22:15] LABS: APTT (PATIENT) 25.4 SEC (24.3-30.1)
[2017-07-27 22:39] LABS: HEMOGLOBIN A1a 0.7 %; HEMOGLOBIN A1b 0.9 %; HEMOGLOBIN Ao 85.4 %; HEMOGLOBIN LA1C 2.1 %; HEMOGLOBIN P3 3.6 %
[2017-07-28] VITALS (26 sets, daily range): BP systolic 130–140; BP diastolic 76–94; PULSE 56–82; RESP 16; TEMP 97.9–98.7; O2SAT 95–98
[2017-07-28] MEDS: SODIUM CHLOR 0.9% 1000 ML INJ 1,000 ML IV SCH ×3 (00:51→10:19)
[2017-07-28] MEDS: NITROGLYCERIN 2% OINT 1 GM PACKET TOPICAL SCH ×4 (00:51→18:04)
[2017-07-28 07:02] LABS: AUTOMATED NEUTROPHIL # 6.5 TH/MM3 (1.8-7.7); BASOPHIL % 0.3 % (0.0-2.0); EOSINOPHIL # 0.1 TH/MM3 (0-0.4); EOSINOPHIL % 1.2 % (0.0-4.0); HEMATOCRIT 41.9 % (39.0-51.0); HEMO FLAGS DIFF FINAL; LYMPH % 23.1 % (9.0-44.0); LYMPHOCYTE # 2.2 TH/MM3 (1.0-4.8); MEAN CORPUSCULAR HEMOGLOBIN 29.2 PG (27.0-34.0); MEAN CORPUSCULAR HGB CONC 34.3 % (32.0-36.0); MONO % 7.2 % (0.0-8.0); NEUT % 68.2 % (16.0-70.0); PLATELET COUNT 185 TH/MM3 (150-450); RED BLOOD COUNT 4.93 MIL/MM3 (4.50-5.90); WHITE BLOOD COUNT 9.6 TH/MM3 (4.0-11.0)
[2017-07-28 07:19] LABS: POTASSIUM 3.2 MEQ/L (3.5-5.1)
[2017-07-28 07:21] LABS: HDL CHOLESTEROL 35.2 MG/DL (40.0-60.0)
--- NOTE | 2017-07-28 07:50 | PD.CARD.PN ---
Subjective Subjective Remarks Feels "great". Walking halls without difficulty. No further CP. No SOB, dizziness, nausea. Objective Medications Item Value Date Time Aspirin 81 mg 07/28/17 0900 (Aspirin Chew) DAILY/PO Ticagrelor 90 mg 07/27/172099 (Brilinta) BID/PO Enalapril Maleate 2.5 mg 07/27/17 0900 (Vasotec) DAILY/PO 07/27/17 0900 Metoprolol 25 mg 07/26/172099 Tartrate Q12HR/PO 07/27/172056 (Lopressor) Current Medications Medications (Trade) Dose Ordered Sig/[place] Route Start Time Stop Time Status Last Admin (NS Flush) 2 ml BID IVF 07/26/17 21:00 (Tylenol) 500 mg Q4H PRN PO 07/26/17 16:00 ([place] 7.5-325 Mg) 1 tab Q4H PRN PO 07/26/17 16:00 (Zofran Inj) 4 mg Q6H PRN IV PUSH 07/26/17 16:00 (Protonix) 40 mg DAILY PO 07/26/17 16:30 07/27/17 09:39 (Duoneb Neb) 1 ampule Q4HR NEB PRN INH 07/26/17 16:45 (Catapres) 0.1 mg Q4H PRN PO 07/26/17 16:45 (Xanax) 0.25 mg Q6H PRN PO 07/26/17 16:45 (Nitroglycerin 2% Oint) 1 inch Q6HR TOPICAL 07/26/17 18:00 07/27/17 06:34 (Lopressor) 25 mg Q12HR PO 07/26/17 21:00 07/27/17 20:57 (Lipitor) 20 mg DAILY PO 07/26/17 17:15 07/27/17 09:43 (Morphine Inj) 5 mg Q4H PRN IV PUSH 07/26/17 17:30 (Vasotec) 2.5 mg DAILY PO 07/27/17 09:00 07/27/17 09:00 Sodium Chloride 1,000 ml @ 100 mls/hr Q10H IV 07/27/17 08:17 08/01/17 08:16 07/27/17 10:01 (Benadryl) 50 mg SENIOR SCRUM MASTER PO 07/27/17 08:30 07/31/17 08:29 (Valium) 10 mg SENIOR SCRUM MASTER PO 07/27/17 08:30 07/31/17 08:29 07/27/17 10:18 Sodium Chloride 1,000 ml @ 100 mls/hr Q10H IV 07/27/17 13:00 07/28/17 12:59 07/27/17 13:00 (NS Flush) 2 ml UNSCH PRN IVF 07/27/17 12:15 (Restoril) 15 mg HS PRN PO 07/27/17 12:15 (Aspirin Chew) 81 mg DAILY PO 07/28/17 09:00 (Brilinta) 90 mg BID PO 07/27/17 21:00 Vital Signs / I&O Vital Signs Date Time Temp Pulse Resp B/P (MAP) Pulse Ox O2 Delivery O2 Flow Rate FiO2 07/28/17 06:00 60 07/28/17 05:00 57 07/28/17 04:00 58 07/28/17 03:00 98.5 59 16 140/81 (100) 97 07/28/17 01:00 57 07/27/17 23:00 68 07/27/17 23:00 100.0 66 16 128/81 (97) 97 07/27/17 22:06 98 07/27/17 22:00 74 07/27/17 21:00 80 07/27/17 20:00 80 07/27/17 19:00 100.1 70 18 137/84 (101) 97 07/27/17 19:00 70 07/27/17 18:53 71 07/27/17 18:52 74 16 151/80 (103) 97 07/27/17 12:08 99 Room Air 07/27/17 08:56 95 21 Physical Exam GENERAL: Well developed, well nourished. No acute distress. HEENT: Jugular venous pressure is normal. CHEST: Lungs clear to auscultation bilaterally. Unlabored respiratory effort. CARDIAC: Regular rate and rhythm without S3, S4, or murmur. ABDOMEN: Soft, nontender, no hepatosplenomegaly. Bowel sounds present. EXTREMITIES: No clubbing, cyanosis, or edema. Laboratory Laboratory Tests Test 07/27/17 21:10 07/28/17 04:36 Activated Partial Thromboplast Time 25.4 SEC Blood Urea Nitrogen 9 MG/DL 9 MG/DL Creatinine 0.82 MG/DL 0.76 MG/DL Random Glucose 130 MG/DL 88 MG/DL Calcium Level 8.6 MG/DL 8.3 MG/DL Sodium Level 139 MEQ/L 139 MEQ/L Potassium Level 3.2 MEQ/L 3.2 MEQ/L Chloride Level 105 MEQ/L 105 MEQ/L Carbon Dioxide Level 25.2 MEQ/L 27.0 MEQ/L Anion Gap 9 MEQ/L 7 MEQ/L Estimat Glomerular Filtration Rate 100 ML/MIN 109 ML/MIN Hemoglobin A1c 5.7 % White Blood Count 9.6 TH/MM3 Red Blood Count 4.93 MIL/MM3 Hemoglobin 14.4 GM/DL Hematocrit 41.9 % Mean Corpuscular Volume 85.0 FL Mean Corpuscular Hemoglobin 29.2 PG Mean Corpuscular Hemoglobin Concent 34.3 % Red Cell Distribution Width 13.0 % Platelet Count 185 TH/MM3 Mean Platelet Volume 8.3 FL Neutrophils (%) (Auto) 68.2 % Lymphocytes (%) (Auto) 23.1 % Monocytes (%) (Auto) 7.2 % Eosinophils (%) (Auto) 1.2 % Basophils (%) (Auto) 0.3 % Neutrophils # (Auto) 6.5 TH/MM3 Lymphocytes # (Auto) 2.2 TH/MM3 Monocytes # (Auto) 0.7 TH/MM3 Eosinophils # (Auto) 0.1 TH/MM3 Basophils # (Auto) 0.0 TH/MM3 CBC Comment DIFF FINAL Differential Comment Total Creatine Kinase 306 U/L Triglycerides Level 155 MG/DL Cholesterol Level 191 MG/DL LDL Cholesterol 125 MG/DL HDL Cholesterol 35.2 MG/DL Cholesterol/HDL Ratio 5.42 RATIO Assessment and Plan Problem List: (1) NSTEMI (non-ST elevated myocardial infarction) ICD Codes: I21.4 - Non-ST elevation (NSTEMI) myocardial infarction Status: Acute Plan: Doing well s/p NSTEMI, PCI of totally occluded proximal RCA. No further angina. No CHF. Groin and right radial area stable. AM labs OK. REC 24 more hours observation continue metoprolol, increase enalapril dosing continue Brilinta/baby aspirin (2) Hyperlipidemia ICD Codes: E78.5 - Hyperlipidemia, unspecified Status: Chronic Plan: Overall suboptimal LDL level. Rec increase atorvastatin dosing. Code Status full code Discussed Condition With patient Problem Qualifiers (1) Hyperlipidemia: Qualified Codes: E78.2 - Mixed hyperlipidemia Matty Lux MD Jul 28, 2017 07:50
[2017-07-28] MEDS: ASPIRIN 81 MG CHEW TAB PO SCH (08:48)
[2017-07-28] MEDS: PANTOPRAZOLE SOD 40 MG DELAYED RELEASE TAB PO SCH (08:49)
[2017-07-28] MEDS: METOPROLOL TARTRATE 25 MG TAB PO SCH ×2 (08:49→20:39)
[2017-07-28] MEDS: ENALAPRIL MALEATE 5 MG TAB PO SCH (08:49)
[2017-07-28] MEDS: ATORVASTATIN 40 MG TAB PO SCH (08:49)
[2017-07-28] MEDS: SODIUM CHLORIDE 0.9% FLUSH 5 ML FLUSH IVF SCH ×2 (08:50→20:39)
--- NOTE | 2017-07-28 08:51 | HHI.PR ---
Subjective Remarks Follow-up for Non-STEMI status post cardiac catheterization. Patient is currently doing well. Denies any chest pain, shortness of breath, fever or chills. He is ambulating well and tolerating diet well. Sitting in his chair. Objective Vitals Vital Signs Date Time Temp Pulse Resp B/P (MAP) Pulse Ox O2 Delivery O2 Flow Rate FiO2 07/28/17 08:21 66 07/28/17 07:30 98.2 64 16 130/87 (101) 97 07/28/17 07:03 56 07/28/17 06:00 60 07/28/17 05:00 57 07/28/17 04:00 58 07/28/17 03:00 98.5 59 16 140/81 (100) 97 07/28/17 01:00 57 07/27/17 23:00 68 07/27/17 23:00 100.0 66 16 128/81 (97) 97 07/27/17 22:06 98 07/27/17 22:00 74 07/27/17 21:00 80 07/27/17 20:00 80 07/27/17 19:00 100.1 70 18 137/84 (101) 97 07/27/17 19:00 70 07/27/17 18:53 71 07/27/17 18:52 74 16 151/80 (103) 97 07/27/17 12:08 99 Room Air 07/27/17 08:56 95 21 Result Diagram: 07/28/17 0436 07/28/17 0436 Objective Remarks GENERAL: Alert, oriented 3, NAD. SKIN: Warm and dry. HEAD: Normocephalic. EYES: No scleral icterus. No injection or drainage. NECK: Supple, trachea midline. No JVD or lymphadenopathy. CARDIOVASCULAR: Regular rate and rhythm without murmurs, gallops, or rubs. RESPIRATORY: Breath sounds equal bilaterally. No accessory muscle use. GASTROINTESTINAL: Abdomen soft, non-tender, nondistended. MUSCULOSKELETAL: No cyanosis, or edema. BACK: Nontender without obvious deformity. No CVA tenderness. Procedures Cardiac catheterization 07/27/2017 CONCLUSION 1. Moderate to severe two-vessel coronary artery disease. 2. Status post angioplasty and stent of a totally occluded proximal right coronary artery. 3. Overall normal left ventricular function with estimated ejection fraction of 60%. A/P Problem List: (1) NSTEMI (non-ST elevated myocardial infarction) ICD Code: I21.4 - Non-ST elevation (NSTEMI) myocardial infarction Status: Acute Assessment and Plan 46-year-old active male with no significant past medical history, presents with chest pain after exercising on the treadmill NSTEMI: Troponins 0.05 --> 0.76 --> 1.71. EKG reviewed, shows sinus bradycardia otherwise no acute ST changes. - Status post cardiac catheterization with stent placement to a totally or carotid proximal RCA. - Continue aspirin 81 mg daily, ticagrelor 90 mg twice a day, metoprolol 25 mg every 12 hours, enalapril 5 mg EO daily - Also continue Lipitor 40 mg daily. Anxiety - continue alprazolam 0.25 mg by mouth every 6 hours when necessary GERD - continue Protonix 40 mg daily. Full code, ambulation. Discharge plan: Patient is currently doing well. Per cardiology recommendation , likely discharge in the morning on 07/29/2017. Dannie Talley DO Jul 28, 2017 8:51 am
[2017-07-28] MEDS: TICAGRELOR 90 MG TAB PO SCH ×2 (08:52→20:39)
[2017-07-28] MEDS: POTASSIUM CHLORIDE 10 MEQ CONTROLLED RELEASE TAB PO SCH ×2 (09:32→20:40)
[2017-07-29] VITALS (13 sets, daily range): BP systolic 120–142; BP diastolic 81–85; PULSE 50–94; RESP 16–18; TEMP 98.4–98.6; O2SAT 96–98
[2017-07-29] MEDS: SODIUM CHLOR 0.9% 1000 ML INJ 1,000 ML IV SCH ×2 (00:17→08:35)
[2017-07-29] MEDS: NITROGLYCERIN 2% OINT 1 GM PACKET TOPICAL SCH ×3 (06:00→09:56)
[2017-07-29 06:51] LABS: HEMATOCRIT 41.1 % (39.0-51.0); MEAN CELL VOLUME 84.8 FL (80.0-100.0); MEAN CORPUSCULAR HEMOGLOBIN 29.1 PG (27.0-34.0); MEAN CORPUSCULAR HGB CONC 34.3 % (32.0-36.0); PLATELET COUNT 174 TH/MM3 (150-450); RED BLOOD COUNT 4.85 MIL/MM3 (4.50-5.90); RED CELL DISTRIBUTION WIDTH 12.8 % (11.6-17.2); REVIEW FLAG FINAL; WHITE BLOOD COUNT 8.9 TH/MM3 (4.0-11.0)
[2017-07-29] MEDS: ATORVASTATIN 40 MG TAB PO SCH (08:31)
[2017-07-29] MEDS: ENALAPRIL MALEATE 5 MG TAB PO SCH (08:32)
[2017-07-29] MEDS: METOPROLOL TARTRATE 25 MG TAB PO SCH (08:33)
[2017-07-29] MEDS: TICAGRELOR 90 MG TAB PO SCH (08:33)
[2017-07-29] MEDS: ASPIRIN 81 MG CHEW TAB PO SCH (08:33)
--- NOTE | 2017-07-29 08:33 | PD.CARD.PN ---
Subjective Subjective Remarks Feels "good". Walking halls without difficulty. No further CP. No SOB, dizziness, nausea. Objective Medications Item Value Date Time Atorvastatin 20 mg 07/26/17 1715 Calcium DAILY/PO 07/27/17 0943 (Lipitor) Aspirin 81 mg 07/28/17 0900 (Aspirin Chew) DAILY/PO 07/28/17 0848 Atorvastatin 40 mg 07/28/17 0900 Calcium DAILY/PO 07/28/17 0849 (Lipitor) Enalapril Maleate 5 mg 07/28/17 0900 (Vasotec) DAILY/PO 07/28/17 0849 Potassium Chloride 30 meq 07/28/17 0900 (KCl) Q12HR/PO 07/28/172039 Ticagrelor 90 mg 07/27/172099 (Brilinta) BID/PO 07/28/172038 Metoprolol 25 mg 07/26/172099 Tartrate Q12HR/PO 07/28/172038 (Lopressor) Current Medications Medications (Trade) Dose Ordered Sig/[place] Route Start Time Stop Time Status Last Admin (NS Flush) 2 ml BID IVF 07/26/17 21:00 07/28/17 20:39 (Tylenol) 500 mg Q4H PRN PO 07/26/17 16:00 ([place] 7.5-325 Mg) 1 tab Q4H PRN PO 07/26/17 16:00 (Zofran Inj) 4 mg Q6H PRN IV PUSH 07/26/17 16:00 (Protonix) 40 mg DAILY PO 07/26/17 16:30 07/28/17 08:49 (Duoneb Neb) 1 ampule Q4HR NEB PRN INH 07/26/17 16:45 (Catapres) 0.1 mg Q4H PRN PO 07/26/17 16:45 (Xanax) 0.25 mg Q6H PRN PO 07/26/17 16:45 (Nitroglycerin 2% Oint) 1 inch Q6HR TOPICAL 07/26/17 18:00 07/27/17 06:34 (Lopressor) 25 mg Q12HR PO 07/26/17 21:00 07/28/17 20:39 (Morphine Inj) 5 mg Q4H PRN IV PUSH 10/17/17 17:30 Sodium Chloride 1,000 ml @ 100 mls/hr Q10H IV 07/27/17 08:17 08/01/17 08:16 07/27/17 10:01 (Benadryl) 50 mg MOLDED [employer] INS[employer] TRIMMER PO 07/27/17 08:30 07/31/17 08:29 (Valium) 10 mg M[employer] INS[employer] TRIMMER PO 07/27/17 08:30 07/31/17 08:29 07/27/17 10:18 (NS Flush) 2 ml UNSCH PRN IVF 07/27/17 12:15 (Restoril) 15 mg HS PRN PO 07/27/17 12:15 (Aspirin Chew) 81 mg DAILY PO 07/28/17 09:00 07/28/17 08:48 (Brilinta) 90 mg BID PO 07/27/17 21:00 07/28/17 20:39 (Lipitor) 40 mg DAILY PO 07/28/17 09:00 07/28/17 08:49 (Vasotec) 5 mg DAILY PO 07/28/17 09:00 07/28/17 08:49 (KCl) 30 meq Q12HR PO 07/28/17 09:00 07/31/17 08:59 07/28/17 20:40 Vital Signs / I&O Vital Signs Date Time Temp Pulse Resp B/P (MAP) Pulse Ox O2 Delivery O2 Flow Rate FiO2 07/29/17 06:00 51 07/29/17 05:00 50 07/29/17 04:00 52 07/29/17 03:30 98.6 56 16 120/81 (94) 96 07/29/17 03:00 50 07/29/17 02:00 52 07/29/17 01:00 54 07/29/17 00:00 60 07/28/17 23:30 97.9 58 16 137/94 (108) 97 07/28/17 23:00 60 07/28/17 22:00 60 07/28/17 21:00 68 07/28/17 20:00 72 07/28/17 20:00 98.7 69 16 133/76 (95) 98 07/28/17 19:22 97 07/28/17 19:00 68 07/28/17 18:03 79 07/28/17 17:16 82 10/19/17 16:04 60 07/28/17 15:00 98.3 60 16 135/85 (102) 95 07/28/17 15:00 68 07/28/17 14:08 78 07/28/17 13:00 68 07/28/17 12:00 75 07/28/17 11:01 67 07/28/17 11:00 98.2 60 16 132/82 (99) 97 07/28/17 10:11 66 07/28/17 09:01 71 I/O 07/28/17 07/28/17 07/28/17 07/29/17 07/29/17 07/29/17 07:00 15:00 23:00 07:00 15:00 23:00 Intake Total 720 ml 240 ml Balance 720 ml 240 ml Intake Oral 720 ml 240 ml # Voids 3 2 # Bowel Movements 0 1 Physical Exam GENERAL: Well developed, well nourished. No acute distress. HEENT: Jugular venous pressure is normal. CHEST: Lungs clear to auscultation bilaterally. Unlabored respiratory effort. CARDIAC: Regular rate and rhythm without S3, S4, or murmur. ABDOMEN: Soft, nontender, no hepatosplenomegaly. Bowel sounds present. EXTREMITIES: No clubbing, cyanosis, or edema. Laboratory Laboratory Tests Test 07/29/17 05:49 White Blood Count 8.9 TH/MM3 Red Blood Count 4.85 MIL/MM3 Hemoglobin 14.1 GM/DL Hematocrit 41.1 % Mean Corpuscular Volume 84.8 FL Mean Corpuscular Hemoglobin 29.1 PG Mean Corpuscular Hemoglobin Concent 34.3 % Red Cell Distribution Width 12.8 % Platelet Count 174 TH/MM3 Mean Platelet Volume 8.2 FL Assessment and Plan Problem List: (1) NSTEMI (non-ST elevated myocardial infarction) ICD Codes: I21.4 - Non-ST elevation (NSTEMI) myocardial infarction Status: Acute Plan: Doing well s/p NSTEMI, PCI of totally occluded proximal RCA. No further angina. No CHF. REC OK to discharge home today from a cardiac standpoint, 2 week f/u with one of our doctors in [facility] office continue metoprolol, enalapril continue Brilinta/baby aspirin (2) Hyperlipidemia ICD Codes: E78.5 - Hyperlipidemia, unspecified Status: Chronic Plan: Overall suboptimal LDL level. Continue statin. Discussed at length cholesterol lowering therapy, risk/benefits. Discussed dietary goals, restrictions. Code Status full code Discussed Condition With patient Problem Qualifiers (1) Hyperlipidemia: Qualified Codes: E78.2 - Mixed hyperlipidemia Matty Lux MD Jul 29, 2017 08:33
[2017-07-29] MEDS: POTASSIUM CHLORIDE 10 MEQ CONTROLLED RELEASE TAB PO SCH (08:34)
[2017-07-29] MEDS: PANTOPRAZOLE SOD 40 MG DELAYED RELEASE TAB PO SCH (08:34)
[2017-07-29] MEDS: SODIUM CHLORIDE 0.9% FLUSH 5 ML FLUSH IVF SCH (08:34)
[2017-07-29] MEDS ORDERED: METO25TA3 PO (11:21)
[2017-07-29] MEDS ORDERED: ASPI81CH25 PO (11:21)
[2017-07-29] MEDS ORDERED: BRIL90TA PO (11:21)
[2017-07-29] MEDS ORDERED: ENAL5TAB PO (11:21)
[2017-07-29] MEDS ORDERED: ATOR40TA16 PO (11:21)
--- NOTE | 2017-07-29 11:22 | HHI.DS ---
Discharge Summary Admission Date Jul 27, 2017 at 5:44 pm Discharge Date: Jul 29, 2017 Admitting Diagnosis Chest pain. (1) NSTEMI (non-ST elevated myocardial infarction) ICD Code: I21.4 - Non-ST elevation (NSTEMI) myocardial infarction Status: Acute Procedures Cardiac catheterization 07/27/2017 CONCLUSION 1. Moderate to severe two-vessel coronary artery disease. 2. Status post angioplasty and stent of a totally occluded proximal right coronary artery. 3. Overall normal left ventricular function with estimated ejection fraction of 60%. Brief History - From Admission This is a 46-year-old male that presents to ED in [place] to evaluate chest discomfort that began this morning. He was then transferred via [facility] to the chest pain center to further evaluate his discomforts. He states that he had just finished going on his treadmill for 40 minutes. Going about 6 mph. Maximal heart rate about 1-60. About 20 minutes later while in the shower he developed a tightness in the center/left of his chest but began to worsen as she is driving into work. It has remained a 5 out of 10 ever since. He states he was given subluminal nitroglycerin in the ED and ointment which really has not changed symptoms. Denies shortness breath, nausea, or diaphoresis. States he is active. He goes on the treadmill 3 times a week and has no discomfort when doing so. He also will ride his bicycle at times for 20 miles or more. States he never has discomfort while doing so. Denies recent illness. Denies fevers or chills. Denies recent travel. Cannot recall ever having a stress test or heart catheterization. CBC/BMP: 07/29/17 0549 07/28/17 0436 Significant Findings Laboratory Tests Test 07/26/17 15:55 07/26/17 18:00 07/26/17 18:55 07/26/17 22:20 Creatine Kinase MB 8.6 NG/ML (0.5-3.6) 16.4 NG/ML (0.5-3.6) Troponin I 0.76 NG/ML (0.02-0.05) 1.71 NG/ML (0.02-0.05) Test 07/27/17 00:50 07/27/17 21:10 07/28/17 04:36 07/29/17 05:49 Activated Partial Thromboplast Time 33.6 SEC (24.3-30.1) Random Glucose 130 MG/DL (74-106) Potassium Level 3.2 MEQ/L (3.5-5.1) 3.2 MEQ/L (3.5-5.1) Calcium Level 8.3 MG/DL (8.5-10.1) Triglycerides Level 155 MG/DL (42-150) LDL Cholesterol 125 MG/DL (0-99) HDL Cholesterol 35.2 MG/DL (40.0-60.0) PE at Discharge GENERAL: Alert, oriented 3, NAD. SKIN: Warm and dry. HEAD: Normocephalic. EYES: No scleral icterus. No injection or drainage. NECK: Supple, trachea midline. No JVD or lymphadenopathy. CARDIOVASCULAR: Regular rate and rhythm without murmurs, gallops, or rubs. RESPIRATORY: Breath sounds equal bilaterally. No accessory muscle use. GASTROINTESTINAL: Abdomen soft, non-tender, nondistended. MUSCULOSKELETAL: No cyanosis, or edema. BACK: Nontender without obvious deformity. No CVA tenderness. Pt update on day of discharge Patient is doing well. No acute concerns. Denies any chest pain, fever, chills. Cardiology cleared for discharge. Hospital Course 46-year-old active male with no significant past medical history, presents with chest pain after exercising on the treadmill NSTEMI: Troponins 0.05 --> 0.76 --> 1.71. EKG reviewed, shows sinus bradycardia otherwise no acute ST changes. - Status post cardiac catheterization with stent placement to a totally or carotid proximal RCA. - Continue aspirin 81 mg daily, ticagrelor 90 mg twice a day, metoprolol 25 mg every 12 hours, enalapril 5 mg EO daily - Also continue Lipitor 40 mg daily. Anxiety - continue alprazolam 0.25 mg by mouth every 6 hours when necessary GERD - continue Protonix 40 mg daily. Full code, ambulation. Pt Condition on Discharge: Good Discharge Disposition: Discharge Home Discharge Time: > 30 minutes Discharge Instructions DIET: Follow Instructions for: Heart Healthy Diet Activities you can perform: Regular-No Restrictions Follow up Referrals: Cardiology - 2 Weeks with Matty Lux MD PCP Follow-up - 1 Week New Medications: Aspirin (Aspirin Low Strength) 81 Mg Chew 81 MG PO DAILY for Blood Clot Prevention, #90 EA Atorvastatin (Atorvastatin) 40 Mg Tab 40 MG PO DAILY for Cholesterol Management, #90 TAB 3 Refills Enalapril (Enalapril) 5 Mg Tab 5 MG PO DAILY for Blood Pressure Management, #90 TAB 3 Refills Metoprolol Tartrate (Metoprolol Tartrate) 25 Mg Tab 25 MG PO Q12HR for Heart, #180 TAB 3 Refills Ticagrelor (Brilinta) 90 Mg Tab 90 MG PO BID for Blood Clot Prevention, #180 TAB 3 Refills Dannie Talley DO Jul 29, 2017 11:22
== END 2017-07-29 12:00 | disposition home or self-care (01) | DRG 247 ==
LOC: NEDDLT 15:54 → NEPHCDU 16:04 → HCIS 07-27 10:59 → OBSVTOIN 07-27 17:44 → HCIN 07-27 18:49
PROVIDERS: ADMIT Hospitalist; ATTEND Hospitalist
PROC: 4A023N7 Measurement of Cardiac Sampling and Pressure, Left Heart, Percutaneous Approach (ICD-10-PCS; 2017-07-27)
PROC: B2111ZZ Fluoroscopy of Multiple Coronary Arteries using Low Osmolar Contrast (ICD-10-PCS; 2017-07-27)
PROC: B2151ZZ Fluoroscopy of Left Heart using Low Osmolar Contrast (ICD-10-PCS; 2017-07-27)
PROC: 027034Z Dilation of Coronary Artery, One Artery with Drug-eluting Intraluminal Device, Percutaneous Approach (ICD-10-PCS; principal; 2017-07-27 11:00)
DX: I21.4 Non-ST elevation (NSTEMI) myocardial infarction (principal); E78.5 Hyperlipidemia, unspecified; I25.10 Atherosclerotic heart disease of native coronary artery without angina pectoris; F41.9 Anxiety disorder, unspecified; K21.9 Gastro-esophageal reflux disease without esophagitis
CPT/HCPCS: 80048; 80061; 82550; 82552; 83036; 84484; 85002; 85025; 85027; 85347; 85610; 85730; 92928; 93005; 93458; C1725; C1769; C1874; C1887; C1893; J1644; J2250; J3246; J7030; Q9967